=== PATIENT | female | born 1985 | race African-American/Black ===

== ENCOUNTER 2017-08-01 04:59 | Emergency (ER) | payer OTHER ==
[~2017-08-01] VITALS: Ht 167.6 cm; Wt 52.8 kg
[2017-08-01 05:03] VITALS: Ht 167.6 cm; Wt 52.8 kg
[2017-08-01 06:14] VITALS: BP 133/89
== END 2017-08-01 05:15 | disposition home or self-care (01) ==
LOC: ED 04:59
DX: N61.0 Mastitis without abscess (principal); L03.90 Cellulitis, unspecified
CPT/HCPCS: J0690